=== PATIENT | male | born 1950 | race Caucasian/White ===

== ENCOUNTER 2019-03-20 06:54 | Outpatient (REF) | payer MEDICARE, SELFPAY ==
[2019-03-20 08:02] LABS: Basophils % 0.6 %; Eosinophils # 0.1 10^3/uL (0.0-0.8); Eosinophils % 2.3 %; Hematocrit 45.6 % (42.0-52.0); Hemoglobin 14.7 g/dL (11.7-16.6); Lymphocytes # 1.6 10^3/uL (0.8-4.8); Lymphocytes % 34.1 %; Mean Corpuscular HGB Conc 32.2 g/dL (30.0-36.0); Mean Corpuscular Hemoglobin 31.3 pg (28.0-34.0); Mean Platelet Volume 10.6 fL (7.4-10.4); Monocytes # 0.6 10^3/uL (0.2-0.9); Monocytes % 11.4 %; Neutrophils # 2.5 10^3/uL (1.8-7.7); Neutrophils % 51.6 %; Nucleated Red Blood Cells % 0 %; Platelet Count 190 10^3/cmm (130-400); Red Cell Distribution Width 13.1 % (12.1-15.1); White Blood Count 4.8 10^3/uL (4.0-10.0)
[2019-03-20 11:35] LABS: Prostate Specific Antigen 1.14 ng/mL (0-4)
[2019-03-20 11:47] LABS: Alanine Aminotransferase 29 U/L (0-41); Albumin Level 4.5 g/dL (3.5-5.2); Alkaline Phosphatase 61 IU/L (40-130); Anion Gap 15.5 (5-19); Aspartate Amino Transferase 29 U/L (0-40); Blood Urea Nitrogen 17 mg/dL (8-23); Calcium 10.1 mg/dL (8.5-10.5); Carbon Dioxide 27 mmol/L (22-29); Chloride 102 mmol/L (98-107); Chol HDL Ratio 4.63 mg/dL (1.0-5.00); Cholesterol 222 mg/dL (0-200); Globulin 3.2 g/dL (1.3-4.6); Glomerular Filtration Rate 95.8 mL/min (90-130); Glucose 102 mg/dL (65-115); HDL Cholesterol 48 mg/dL (60-100); LDL Cholesterol Calculated 154 mg/dL (50-129); LDL HDL Ratio 3.21 RATIO (0.00-3.22); Potassium 4.5 mmol/L (3.5-5.1); Sodium 140 mmol/L (136-145); Total Bilirubin 0.5 mg/dL (0.15-1.2); Total Protein 7.7 g/dL (6.6-8.7); Triglycerides 102 mg/dL (0-150)
[2019-03-21 03:14] LABS: Estmated Average Glucose 123; Hemoglobin A1C 5.9 % (4.0-6.0)
== END 2019-03-20 06:55 | disposition home or self-care (01) ==
LOC: LAB 06:54
PROVIDERS: Family Provider Nurse Practitioner Family; PCP Nurse Practitioner Family; Visit Provider Dermatology
DX: Z01.89 Encounter for other specified special examinations (principal)
CPT/HCPCS: 80053; 80061; 83036; 84153; 85025

== ENCOUNTER → 2020-05-03 08:43 | Outpatient (BNVA) | payer SELFPAY | PROVIDERS: Family Provider Nurse Practitioner Family; PCP Nurse Practitioner Family; Visit Provider Dermatology | DX: Z01.89 Encounter for other specified special examinations (principal) ==

== ENCOUNTER → 2020-11-10 09:11 | Outpatient (BNVA) | payer OTHER, SELFPAY | PROVIDERS: Family Provider Nurse Practitioner Family; PCP Nurse Practitioner Family; Visit Provider Registered Nurse | DX: R30.0 Dysuria (principal); R36.0 Urethral discharge without blood; Z20.2 Contact with and (suspected) exposure to infections with a predominantly sexual mode of transmission; N39.0 Urinary tract infection, site not specified | CPT/HCPCS: 81000; 87491; 87591 ==

== ENCOUNTER → 2021-04-25 08:33 | Outpatient (BNVA) | payer SELFPAY | PROVIDERS: Family Provider Nurse Practitioner Family; PCP Registered Nurse; Visit Provider Dermatology | DX: Z01.89 Encounter for other specified special examinations (principal) ==

== ENCOUNTER → 2022-04-24 09:07 | Outpatient (BNVA) | payer SELFPAY | PROVIDERS: Family Provider Nurse Practitioner Family; PCP Registered Nurse; Visit Provider Registered Nurse | DX: Z01.89 Encounter for other specified special examinations (principal); Z13.6 Encounter for screening for cardiovascular disorders ==

== ENCOUNTER → 2022-05-17 11:10 | Outpatient (BNVA) | payer MEDICARE, SELFPAY | PROVIDERS: Family Provider Nurse Practitioner Family; PCP Registered Nurse; Visit Provider Registered Nurse | DX: Z12.83 Encounter for screening for malignant neoplasm of skin (principal) | CPT/HCPCS: 88304 ==

== ENCOUNTER 2022-12-11 22:29 | Observation (INO) | payer MEDICARE, SELFPAY ==
[2022-12-11 22:38] VITALS: BP 135/90; PULSE 98; RESP 18; TEMP 36.7; O2SAT 98; BMI 25.0
[2022-12-11 22:42] VITALS: PULSE 86
--- NOTE | 2022-12-11 22:42 | XRR_ITS ---
PROCEDURE INFORMATION: Exam: XR Chest Exam date and time: 12/11/2022 10:48 PM Age: 72 years old Clinical indication: Pain; Chest pressure; Additional info: Cp TECHNIQUE: Imaging protocol: Radiologic exam of the chest. Views: 1 view. COMPARISON: No relevant prior studies available. FINDINGS: Lungs: Emphysematous changes. Pleural spaces: Unremarkable. No pleural effusion. No pneumothorax. Heart/Mediastinum: Left hilar calcified adenopathy. Bones/joints: Unremarkable. XR/XR chest 1V portable [id number] IMPRESSION: 1. Left hilar calcified adenopathy. 2. Emphysematous changes.
--- NOTE | 2022-12-11 22:42 | ECG_ITS ---
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 Measurements Intervals [place] Rate: 89 P: 0 FL: 0 QRS: 64 QRSD: 101 T: 60 QT: 346 QTc: 422 Interpretive Statements ATRIAL fibrillation POSSIBLE RIGHT VENTRICULAR CONDUCTION DELAY [RSR (QR) IN V1/V2] No previous ECG available for comparison Electronically Signed On 12-12-2022 11:55:20 CDT by Felton Ramos M.D. [email or web address]/[id number]
[2022-12-11 22:45] VITALS: PULSE 97; O2SAT 98
--- NOTE | 2022-12-11 22:48 | ED_ITS ---
HPI - Chest Pain General: Chief Complaint: Chest Pain Stated Complaint: dizzy, pulse high Time Seen by Provider: 12/11/22 22:31 Source: patient Mode of arrival: ambulatory Limitations: no limitations History of Present Illness: 72-year-old male states that throughout the day today has been having palpi tations he states his heart rate has been getting up into the 130s and 140s. He appears to be in A-fib. Has no known history of A-fib denies any chest pain or shortness of breath states he had some slight lightheadedness with standing as well. No vomiting no diarrhea Associated symptoms: Reports palpitations; Deny abdominal pain, dyspnea, fever(s), nausea or vomiting Review of Systems Const: Denies: fever(s), chills, body aches or change in appetite Eyes: Denies: blurry vision or eye discomfort ENMT: Denies: throat pain or dental pain Card: Reports: palpitations and irregular heart rhythm; Denies: chest pain Resp: Denies: dyspnea GI: Denies: abdominal pain, nausea, vomiting or diarrhea : Denies: dysuria Musc: Denies: neck pain or back pain Skin/Breast: Denies: rash Neuro: Reports: dizziness; Denies: headache(s) PFSH ED PFSH: Social History Smoking and tobacco/nicotine status: former use of tobacco/nicotine Quit status (tobacco/nicotine): has quit using Year quit tobacco: 50 Alcohol intake: current Alcohol intake frequency: 0-2 Drinks per Day Alcohol type: beer Substance/Drug Use: never Adopted: No Caregiver/support person: No Lives independently: No Household members: spouse Marital status: service: Yes status: Retired branch: [employer] Assignments: Inside [facility] ([facility]) Known or Potential Exposure: None Current occupational status: retired Sexually active: Yes Do you think of yourself as: Straight/Heterosexual Current gender identity: Male Physical Exam Const: COMMON NORMALS: no acute distress, patient oriented x3 and healthy appearing HENMT: COMMON NORMALS: normocephalic and atraumatic HEAD & SCALP: normocephalic and atraumatic Neck/C-Spine: COMMON NORMALS: full ROM and supple Chest: COMMONS NORMALS: normal inspection of the chest and normal palpation of entire chest wall Resp: COMMON NORMALS: normal respiratory effort, No retractions, No use of accessory muscles and clear to auscultation bilaterally AUSCULTATION: clear to auscultation bilaterally Cardio: COMMON NORMALS: regular rate and No murmurs present (Cardio) RATE: regular rate RHYTHM: abnormal rhythm irregularly irregular GI: COMMON NORMALS: Normal to inspection, nondistended, normoactive bowel sounds present, Soft to palpation, non-tender and no masses PALPATION: Yes Soft to palpation Extremity: COMMON NORMALS: normal to inspection and full ROM Neuro: COMMON NORMALS: patient oriented x3, moves all extremities and no focal motor deficits Psych: COMMON NORMALS: mental status grossly normal, Normal thought process present and cooperative THOUGHT PROCESS: Normal thought process present Skin: COMMON NORMALS: no rashes or lesions noted and no wounds GENERAL SKIN EXAM: no rashes or lesions noted Course Vital Signs: Vital signs: Vital Signs Temperature 98.0 F 12/11/22 22:38 Pulse Rate 98 12/11/22 22:38 Respiratory Rate 18 12/11/22 22:38 Blood Pressure 135/90 12/11/22 22:38 Pulse Oximetry 98 12/11/22 22:38 Oxygen Delivery Me thod Room Air 12/11/22 22:38 MDM - Chest Pain Medical Decision Making Patient presents with new onset A-fib rate has been controlled here blood work here is initially normal spoke to hospitalist will admit for observation for his new onset A-fib Medical Records I reviewed the patient's medical records. Lab Data I reviewed the patient's lab results. 12/11/22 22:42 12/11/22 22:42 Radiology Impressions Chest X-Ray 12/11/22 22:42 IMPRESSION: 1. Left hilar calcified adenopathy. 2. Emphysematous changes. Laboratory Results WBC 6.92 10^3/uL (3.29-11.43) 12/11/22 22:42 RBC 4.74 10^6/uL (3.85-5.65) 12/11/22 22:42 Hgb 14.80 g/dL (11.27-16.99) 12/11/22 22:42 Hct 44.8 % (37-53) 12/11/22 22:42 MCV 94.5 fl (82-101) 12/11/22 22:42 MCH 31.2 pg (27-33) 12/11/22 22:42 MCHC 33.0 g/dL (30-55) 12/11/22 22:42 RDW 13.3 % (12.1-15.1) 12/11/22 22:42 Plt Count 190 10^3/cmm (157-399) 12/11/22 22:42 MPV 10.3 fL (7.4-10.4) 12/11/22 22:42 Neut % (Auto) 47.6 % 12/11/22 22:42 Lymph % (Auto) 37.1 % 12/11/22 22:42 [place] % (Auto) 11.0 % 12/11/22 22:42 Eos % (Auto) 3.6 % 12/11/22 22:42 Baso % (Auto) 0.6 % 12/11/22 22:42 Neut # (Auto) 3.29 10^3/uL (1.8-7.7) 12/11/22 22:42 Lymph # (Auto) 2.6 10^3/uL (0.8-4.8) 12/11/22 22:42 [place] # (Auto) 0.8 10^3/uL (0.2-0.9) 12/11/22 22:42 Eos # (Auto) 0.3 10^3/uL (0.0-0.8) 12/11/22 22:42 Baso # (Auto) 0.0 10^3/uL (0.0-0.1) 12/11/22 22:42 Nucleated RBC % (auto) 0 % 12/11/22 22:42 Nucleated RBCs # 0.0 /100WBC 12/11/22 22:42 Sodium 137 mmol/L (136-145) 12/11/22 22:42 Potassium 4.1 mmol/L (3.5-5.1) 12/11/22 22:42 Chloride 101 mmol/L (98-107) 12/11/22 22:42 Carbon Dioxide 26 mmol/L (22-29) 12/11/22 22:42 Anion Gap 14.1 (5-19) 12/11/22 22:42 BUN 22 mg/dL (8-23) 12/11/22 22:42 Creatinine 0.8 mg/dL (0.7-1.2) 12/11/22 22:42 GFR Calculation Not Reportable 12/11/22 22:42 Glucose 132 mg/dL (65-115) H 12/11/22 22:42 Calculated Osmolality 289 mOsm/kg (285-295) 12/11/22 22:42 Calcium 9.8 mg/dL (8.5-10.5) 12/11/22 22:42 Total Bilirubin 0.2 mg/dL (0.15-1.2) 12/11/22 22:42 AST 25 U/L (0-40) 12/11/22 22:42 ALT 26 U/L (0-41) 12/11/22 22:42 Alkaline Phosphatase 74 U/L (40-130) 12/11/22 22:42 Troponin T Baseline 19 ng/L (0-15) H 12/11/22 22:42 Total Protein 6.8 g/dL (6.6-8.7) 12/11/22 22:42 Albumin 4.4 g/dL (3.5-5.2) 12/11/22 22:42 Globulin 2.4 g/dL (1.3-4.6) 12/11/22 22:42 All radiology interpretation(s) finalized by discharge EKG Data EKG 1: I personally reviewed and interpreted this EKG as follows: EKG interpretation date: 12/11/22 EKG interpretation time: 22:33 Interpretation: afib hr [address] or t wave abnormalities qrs 101 qtc 392 Discharge Plan Discharge Patient Disposition: Placed in Observation Clinical Impression: New onset a-fib Condition: Stable Prescriptions: No Action aspirin 81 mg tablet,chewable 81 mg PO DAILY ibuprofen 200 mg capsule 200 mg PO Q6H PRN Referrals: Graham Weaver FNP [Primary Care Provider] - Chandrakant Calvo FNP [Family Provider] - Coding Level of Care Code ED Cleaning Specialist for Chg Jena
[2022-12-11] MEDS: dilTIAZem 30 mg Tablet 60 MG PO (22:56)
[2022-12-11] MEDS: sodium chloride 0.9% 1,000 ML 999 ML IV (22:56)
[2022-12-11 23:07] LABS: Basophils % 0.6 %; Eosinophils # 0.3 10^3/uL (0.0-0.8); Eosinophils % 3.6 %; Hematocrit 44.8 % (37-53); Lymphocytes # 2.6 10^3/uL (0.8-4.8); Lymphocytes % 37.1 %; Mean Corpuscular Hemoglobin 31.2 pg (27-33); Mean Corpuscular Volume 94.5 fl (82-101); Mean Platelet Volume 10.3 fL (7.4-10.4); Monocytes # 0.8 10^3/uL (0.2-0.9); Neutrophils # 3.29 10^3/uL (1.8-7.7); Neutrophils % 47.6 %; Nucleated Red Blood Cells % 0 %; Platelet Count 190 10^3/cmm (157-399); Red Blood Count 4.74 10^6/uL (3.85-5.65); Red Cell Distribution Width 13.3 % (12.1-15.1); White Blood Count 6.92 10^3/uL (3.29-11.43)
[2022-12-11 23:15] VITALS: PULSE 82; O2SAT 99
[2022-12-11 23:21] LABS: Troponin(5th) Baseline 19 ng/L (0-15)
[2022-12-11 23:26] LABS: Alanine Aminotransferase 26 U/L (0-41); Albumin Level 4.4 g/dL (3.5-5.2); Alkaline Phosphatase 74 U/L (40-130); Anion Gap 14.1 (5-19); Aspartate Amino Transferase 25 U/L (0-40); Blood Urea Nitrogen 22 mg/dL (8-23); Calcium 9.8 mg/dL (8.5-10.5); Carbon Dioxide 26 mmol/L (22-29); Chloride 101 mmol/L (98-107); Creatinine Clr Calc Pharmacy 93.2021; Globulin 2.4 g/dL (1.3-4.6); Glucose 132 mg/dL (65-115); Osmolality Calculated 289 mOsm/kg (285-295); Potassium 4.1 mmol/L (3.5-5.1); Sodium 137 mmol/L (136-145); Total Bilirubin 0.2 mg/dL (0.15-1.2); Total Protein 6.8 g/dL (6.6-8.7)
[2022-12-11 23:44] VITALS: BP 126/83; PULSE 88; RESP 16; O2SAT 97
[2022-12-12] VITALS (8 sets, daily range): BP systolic 97–133; BP diastolic 60–92; PULSE 62–99; RESP 12–25; TEMP 36.4–36.8; O2SAT 94–98
--- NOTE | 2022-12-12 00:42 | ECG_ITS ---
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 Measurements Intervals [place] Rate: 89 P: 0 NV: 0 QRS: 64 QRSD: 101 T: 60 QT: 346 QTc: 422 Interpretive Statements ATRIAL fibrillation POSSIBLE RIGHT VENTRICULAR CONDUCTION DELAY [RSR (QR) IN V1/V2] No previous ECG available for comparison Electronically Signed On 12-12-2022 11:55:47 CDT by Felton Ramos M.D. [id number] f
[2022-12-12 01:14] LABS: Troponin 5 2HR 16.77 ng/L (0-15)
[2022-12-12 01:16] LABS: Troponin 5 2HR Delta -2.23 ABS# (0-10)
--- NOTE | 2022-12-12 02:41 | USCV_ITS ---
Marcus Moura Age: 72 Gender: M : 1950 Exam Date: 12/12/2022 03:02 Ordering Phys: Christelle Clemente MD Technologist: YESENIA Exam Location: [facility] [place] Indication: new Afib. No history of cardiac intervention per patient. BP: 133 / 92 HR: 69 Rhythm: Atrial fibrillation Technical Quality: Adequate MEASUREMENTS (Male / Female) Normal Values 2D ECHO LV Diastolic Diameter PLAX 3.6 cm 4.2 - 5.9 / 3.9 - 5.3 cm LV Systolic Diameter PLAX 2.6 cm IVS Diastolic Thickness 1.7 cm 0.6 - 1.0 / 0.6 - 0.9 cm IVS Systolic Thickness 2.1 cm LVPW Diastolic Thickness 1.8 cm 0.6 - 1.0 / 0.6 - 0.9 cm LVPW Systolic Thickness 2.0 cm LVOT Diameter 1.9 cm LV Ejection Fraction 2D Teich 54.5 % LV Ejection Fraction MOD 2C 59.6 % LV Ejection Fraction 2C AL 60.5 % LA Diameter 4.2 cm LA Width 3.9 cm LA Height 5.2 cm RA Width 3.2 cm RA Height 4.7 cm Aorta at Sinotubular Diameter 3.8 cm IVC Diameter 1.5 cm M-MODE Aortic Annulus Diameter 4.8 cm LA Ao Ratio MM 0.9 MV E Point Septal Separation 0.5 cm DOPPLER AV Peak Velocity 76.0 cm/s LVOT Peak Velocity 71.0 cm/s AV Area Cont Eq vti 2.2 cm squared AV Area Cont Eq pk 2.5 cm squared MV Peak Velocity 89.0 cm/s MV Area PHT 4.0 cm squared MV E' Velocity 47.0 cm/s Mitral E to MV E' Ratio 6.8 Mitral E to LV E' Lateral Ratio 6.5 Mitral E to LV E' Septal Ratio 7.3 TV Peak E Velocity 28.0 cm/s PV Peak Velocity 82.0 cm/s RV Acceleration Time 0.1 s RV Ejection Time 0.3 s RV AcT/ET 0.4 FINDINGS Left Ventricle LV systolic function is normal with EF 55 to 60%. No regional wall motion abnormalities are seen. Diastolic function is indeterminate because of atrial fibrillation. Right Ventricle Normal in size and function Right Atrium Normal in size Left Atrium Dilated Mitral Valve Structurally normal mitral valve. Aortic Valve Grossly normal. No signicant stenosis or regurgitation. Tricuspid Valve Trace tricuspid regurgitation. Insufficient TR jet to calculate RVSP. 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 IVC Appears to be normal CONCLUSIONS LV systolic function is normal with EF 55 to 60%. Diastolic function is indeterminate because of atrial fibrillation. Left atrial dilation Trace tricuspid regurgitation. 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 No comparison studies are available Felton Ramos MD (Electronically Signed) Final Date: 12 December 2022 08:39 S
--- NOTE | 2022-12-12 02:45 | PM.HP ---
Providers/Chief Complaint Admitting Physician: Christelle Clemente MD Primary Care Provider: LIGIA Godinez Chief Complaint: dizzy, pulse high History of Present Illness Marcus Moura is a 72 year old male without significant medical comorbidities who presents to the hospital with about 36 hours of palpitations. Patient states that he has been having a sensation of his heart racing for about 3 days now. Heart rate had been consistently above 100, made worse by exertion. On waking up at night to go to the bathroom patient would often feel dizzy. He denies any past history of atrial fibrillation however has experienced episodic palpitations and dizziness in the past which appears to have self resolved. Most recently his symptoms started shortly after he had been at a social gathering with friends and consumed more alcohol than he usually does. Patient states he typically drinks 1 beer per day but has reduced his frequency significantly over the past 7 months, except for this most recent event. Denies any past history of hypertension diabetes mellitus CHF stroke or coronary artery disease. Denies any dyspnea. Denies chest pain, reports discomfort with the palpitations. He has not started any new medications recently. Denies excessive caffeine consumption. He is fairly active and hikes often. He presnted to the Er today due to persistence of symptoms. H eis found to be in A fib , received 60mg po cardizem in the ER. Review of Systems General: Reports: 10 or more systems reviewed and unremarkable except in HPI and below Const: Denies: fever(s), chills or body aches Eyes: Denies: change in vision, blurry vision or photophobia ENMT: Reports: hoarseness; Denies: throat pain, enlarged tonsils, odynophagia or nasal congestion Card: Denies: chest pain, palpitations, irregular heart rhythm, edema, swelling of feet/ankles, lightheadedness, pre-syncope, dyspnea on exertion or orthopnea Resp: Denies: dyspnea, productive cough, non-productive cough, wheezing, stridor, pain on inspiration, change in phlegm color, hemoptysis or chest congestion GI: Denies: abdominal pain, nausea, vomiting, hematemesis, coffee ground emesis, dysphagia, heartburn, diarrhea, constipation, GI cramping, change in stool character, hematochezia or melena : Denies: flank pain, dysuria, urinary frequency, urinary urgency, urinary hesitancy or hematuria Musc: Denies: neck pain, back pain, extremity pain, joint swelling, joint warmth or deformity Neuro: Denies: headache(s), numbness in extremities, weakness in extremities, sensory changes, difficulty walking, frequent falls, dizziness, vertigo, behavioral changes, Slurred speech present or seizure-like activity Psych: Denies: anxiety, depression, suicidal ideation or homicidal ideation Endo: Denies: polyuria, polydipsia, tired all the time, cold intolerance or hot flashes Yousif/Lymph: Denies: easy bruising or easy bleeding Medications/Allergies Home Medications Medication Instructions Recorded Confirmed Last Taken Type aspirin 81 mg chewable tablet 81 mg PO EVERY OTHER DAY 11/10/20 12/12/22 12/11/22 History ibuprofen 200 mg capsule 200 mg PO Q6H PRN pain 11/10/20 12/12/22 12/11/22 History Fish Oil 1 cap PO 1XD 12/12/22 12/12/22 12/11/22 History L-Lysine 1 tab PO 1XD 12/12/22 12/12/22 12/11/22 History Multi-Daily 1 tab PO 1XD 12/12/22 12/12/22 12/11/22 History Vitamin D (with calcium) 1 tab PO 1XD 12/12/22 12/12/22 12/11/22 History aspirin 1 tab PO EVERY OTHER DAY 12/12/22 12/12/22 12/11/22 History iron 1 tab PO 1XD 12/12/22 12/12/22 12/11/22 History magnesium 1 tab PO 1XD 12/12/22 12/12/22 1 Day Ago History ~12/11/22 saw palmetto 1 tab PO 1XD 12/12/22 12/12/22 1 Day Ago History ~12/11/22 1 tablet Allergies Allergy/AdvReac Type Severity Reaction Status Date / Time No Known Allergies Allergy Verified 12/11/22 22:41 PFSH Acute PFSH: Social History Smoking and tobacco/nicotine status: former use of tobacco/nicotine Quit status (tobacco/nicotine): has quit using Year quit tobacco: 50 Alcohol intake: current Alcohol intake frequency: 0-2 Drinks per Day Alcohol type: beer Substance/Drug Use: never Adopted: No Caregiver/support person: No Lives independently: No Household members: spouse Marital status: service: Yes status: Retired branch: [employer] Assignments: Inside [facility] ([employer]) Known or Potential Exposure: None Current occupational status: retired Sexually active: Yes Do you think of yourself as: Straight/Heterosexual Current gender identity: Male Vitals/I&O/Wt Last Vital Signs Temp 97.5 F L 12/12/22 00:09 Pulse 85 12/12/22 00:09 Resp 18 12/12/22 00:09 BP 123/92 12/12/22 00:09 Pulse Ox 98 12/12/22 00:09 O2 Del Method Room Air 12/12/22 00:09 12/11/22 12/11/22 12/12/22 14:59 22:59 06:59 Intake Total 1000 / 1000 Output Total 400 / 400 Balance 600 / 600 Weight last 48 hrs Weight 83.915 kg Physical Exam Narrative: General: No acute distress, AO x3 HEENT: PERRLA, pupils bilaterally equal and reactive, pallors not present Chest: Normal vesicular breath sounds, no added sounds, equal good air entry bilaterally CVS: S1-S2 regular, no murmurs, no tachycardia, no gallops, no rubs Abdomen: Soft, nontender, no organomegaly, bowel sounds present Neuro: No focal deficits, no facial deformity, AO x3, power 5/5 in all limbs Data 12/11/22 22:42 12/11/22 22:42 A&P Assessment and plan (1) New onset a-fib: Newly diagnosed atrial fibrillation presenting to the ER with about 36 hours of palpitations and heart rate noted to be above 100 at home. Received 60 mg of p.o. Cardizem in the emergency room, thereafter heart rate is between 82-98. Typically patient states his heart rate at baseline runs between 50-60. Check TSH , Ft4 and FT3 No acute st-t wave changes on EKG, trop series 19--> 16 at 2 hrs , no chest pain, overall low suspicion for ACS Negative D dimer, low suspicion for PE Check echocardiogram Start diltiazem 30mg po q6h with close telemetry monitoring Currently [id number] score 1 (+1 point for age 65-74), check hba1c as DM may add additional point to start a/c Attestations Medical Necessity Statement*: less than 2 midnight stay is anticipated for above care Coding Level of Care Code Acute Code for Chg Fwd Moderate MDM includes number and complexity of problems actively addressed during encounter, amount and/or complexity of data reviewed/ordered and described risk of complication, morbidity or mortality of management as documented Diagnoses New onset a-fib I48.91
[2022-12-12 03:00] LABS: D Dimer 0.49 ug/mLFEU (0-0.59)
[2022-12-12] MEDS: dilTIAZem 30 mg Tablet PO (04:48)
--- NOTE | 2022-12-12 04:49 | PC.NURSE ---
order cardizem 30 mg Q6HR, instructed to hold if systolic BP is under 110.
[2022-12-12 05:19] LABS: Troponin 5 6HR 17.36 ng/L (0-15); Troponin 5 6HR Delta -1.64 ng/L (0-12)
[2022-12-12 05:26] LABS: Free T4 Free Thyroxine 1.31 ng/dL (0.82-1.77); T3 Free 2.9 PG/ML (2.0-4.4)
[2022-12-12 05:57] LABS: Estmated Average Glucose 114; Hemoglobin A1C 5.6 % (4.0-6.0)
[2022-12-12] MEDS: pantoprazole DR 40 mg Tablet PO (08:31)
[2022-12-12] MEDS: aspirin 81 mg EC Tablet PO (10:23)
[2022-12-12] MEDS: dilTIAZem 30 mg Tablet 60 MG PO (10:23)
--- NOTE | 2022-12-12 10:39 | P.DS_ITS ---
Discharge Providers Date of Admission: 12/11/22 23:54 Date of Discharge: December 12, 2022 Attending Provider at Admission: Christelle Clemente MD Attending Provider at Discharge: Collin Doe MD Primary Care Provider: LIGIA Godinez Diagnoses at Discharge Discharge Diagnosis (1) New onset a-fib: Status: Acute Reason for Visit Reason for Visit: dizzy, pulse high Hospital Course Hospital Course Marcus Moura is a 72 year old male without significant medical comorbidities who presents to the hospital with about 36 hours of palpitations.? Patient states that he has been having a sensation of his heart racing for about 3 days now.? ? Heart rate had been consistently above 100, made worse by exertion.? On waking up at night to go to the bathroom patient would often feel dizzy.? He denies any past history of atrial fibrillation however has experienced episodic palpitations and dizziness in the past which appears to have self resolved. Most recently his symptoms started shortly after he had been at a social gathering with friends and consumed more alcohol than he usually does.? Patient states he typically drinks 1 beer per day but has reduced his frequency significantly over the past 7 months, except for this most recent event. Denies any past history of hypertension diabetes mellitus CHF stroke or coronary artery disease.? Denies any dyspnea. Denies chest pain, reports discomfort with the palpitations.? He has not started any new medications recently.? Denies excessive caffeine consumption.? He is fairly active and hikes often. He presnted to the Er today due to persistence of symptoms. H eis found to be in A fib , received 60mg po cardizem in the ER. This is a 72-year-old with no significant past medical history, presents [facility] for palpitations, presented to [facility] found to have A-fib with RVR, given Cardizem, heart rates were reasonable, monitored on cardiac stepdown unit, did require 60 Cardizem every 6, heart rates well controlled with exertion. Will be discharged on Cardizem 120 twice daily with close follow-up with cardiology as outpatient. In terms of anticoagulant therapy, patient's Ady Vascor is 1, discussed risks and benefits of anticoagulation such as Eliquis or Xarelto or Coumadin, for now he wants to proceed with aspirin 81 mg, discussed risk and benefits, he voiced understanding, shared decision making, for now he wants to continue aspirin 81 mg once daily. Discussed his risk of strokes, if he were to have any strokelike symptoms please call 911 immediately. In terms of his etiology of atrial fibrillation, he does drink 2 cups of coffee a day I have advised him to cut down his coffee consumption. He does report a history of alcohol consumption, before his episode of chest palpitations, he had consumed beer and wine, I advised him to abstain from alcohol consumption. Follow-up with cardiology 1 week, if he were to have any chest pain or palpitations go to the emergency room. His echocardiogram did show dilatation of ascending aorta, 4 cm, will have a follow-up with cardiothoracic surgery for monitoring. Physical Exam Const: COMMON NORMALS: no acute distress and patient oriented x3 Resp: COMMON NORMALS: normal respiratory effort, No retractions, No use of accessory muscles and clear to auscultation bilaterally AUSCULTATION: clear to auscultation bilaterally Cardio: COMMON NORMALS: regular rate, regular rhythm, S1 normal heart sound present and S2 normal heart sound present RATE: regular rate RHYTHM: regular rhythm HEART SOUNDS: S1 normal heart sound present and S2 normal heart sound present GI: COMMON NORMALS: Normal to inspection, nondistended, normoactive bowel sounds present and non-tender Extremity: COMMON NORMALS: no pedal edema Neuro: COMMON NORMALS: patient oriented x3 Psych: COMMON NORMALS: mental status grossly normal Discharge Data Studies Completed and Pending Completed Studies During Hospitalization Category Date Time Status XR chest 1V portable [id number] Stat Exams 12/11/22 22:42 Completed CV. echo complete* [id number] Routine Ultrasound 12/12/22 02:41 Completed Radiology Impressions Chest X-Ray 12/11/22 22:42 IMPRESSION: 1. Left hilar calcified adenopathy. 2. Emphysematous changes. Laboratory Results WBC 6.92 10^3/uL (3.29-11.43) 12/11/22 22:42 RBC 4.74 10^6/uL (3.85-5.65) 12/11/22 22:42 Hgb 14.80 g/dL (11.27-16.99) 12/11/22 22:42 Hct 44.8 % (37-53) 12/11/22 22:42 MCV 94.5 fl (82-101) 12/11/22 22:42 MCH 31.2 pg (27-33) 12/11/22 22:42 MCHC 33.0 g/dL (30-55) 12/11/22 22:42 RDW 13.3 % (12.1-15.1) 12/11/22 22:42 Plt Count 190 10^3/cmm (157-399) 12/11/22 22:42 MPV 10.3 fL (7.4-10.4) 12/11/22 22:42 Neut % (Auto) 47.6 % 12/11/22 22:42 Lymph % (Auto) 37.1 % 12/11/22 22:42 Stokes % (Auto) 11.0 % 12/11/22 22:42 Eos % (Auto) 3.6 % 12/11/22 22:42 Baso % (Auto) 0.6 % 12/11/22 22:42 Neut # (Auto) 3.29 10^3/uL (1.8-7.7) 12/11/22 22:42 Lymph # (Auto) 2.6 10^3/uL (0.8-4.8) 12/11/22 22:42 Stokes # (Auto) 0.8 10^3/uL (0.2-0.9) 12/11/22 22:42 Eos # (Auto) 0.3 10^3/uL (0.0-0.8) 12/11/22 22:42 Baso # (Auto) 0.0 10^3/uL (0.0-0.1) 12/11/22 22:42 Nucleated RBC % (auto) 0 % 12/11/22 22:42 Nucleated RBCs # 0.0 /100WBC 12/11/22 22:42 D-Dimer 0.49 ug/mLFEU (0-0.59) 12/11/22 22:42 Sodium 137 mmol/L (136-145) 12/11/22 22:42 Potassium 4.1 mmol/L (3.5-5.1) 12/11/22 22:42 Chloride 101 mmol/L (98-107) 12/11/22 22:42 Carbon Dioxide 26 mmol/L (22-29) 12/11/22 22:42 Anion Gap 14.1 (5-19) 12/11/22 22:42 BUN 22 mg/dL (8-23) 12/11/22 22:42 Creatinine 0.8 mg/dL (0.7-1.2) 12/11/22 22:42 GFR Calculation Not Reportable 12/11/22 22:42 Glucose 132 mg/dL (65-115) H 12/11/22 22:42 Estimat Average Glucose 114 12/11/22 22:42 Hemoglobin A1c 5.6 % (4.0-6.0) 12/11/22 22:42 Calculated Osmolality 289 mOsm/kg (285-295) 12/11/22 22:42 Calcium 9.8 mg/dL (8.5-10.5) 12/11/22 22:42 Total Bilirubin 0.2 mg/dL (0.15-1.2) 12/11/22 22:42 AST 25 U/L (0-40) 12/11/22 22:42 ALT 26 U/L (0-41) 12/11/22 22:42 Alkaline Phosphatase 74 U/L (40-130) 12/11/22 22:42 Troponin T Baseline 19 ng/L (0-15) H 12/11/22 22:42 Troponin T 120 Minute 16.77 ng/L (0-15) H 12/12/22 00:40 Delta Troponin T -2.23 ABS# (0-10) L 12/12/22 00:40 Troponin T Hi Sens 6Hr 17.36 ng/L (0-15) H 12/12/22 04:42 Troponin T Hi Sens 6Hr Delta -1.64 ng/L (0-12) L 12/12/22 04:42 Total Protein 6.8 g/dL (6.6-8.7) 12/11/22 22:42 Albumin 4.4 g/dL (3.5-5.2) 12/11/22 22:42 Globulin 2.4 g/dL (1.3-4.6) 12/11/22 22:42 TSH 4.50 uIU/mL (0.27-4.20) H 12/11/22 22:42 Free T4 1.31 ng/dL (0.82-1.77) 12/12/22 04:42 Free T3 2.9 PG/ML (2.0-4.4) 12/12/22 04:42 Vitals Last Vital Signs Temp 97.7 F 12/12/22 07:43 Pulse 75 12/12/22 07:43 Resp 17 12/12/22 07:43 BP 108/73 12/12/22 07:43 Pulse Ox 98 12/12/22 07:43 O2 Del Method Room Air 12/12/22 07:43 Discharge Plan Discharge Patient Disposition: Home Condition: Stable Prescriptions: New aspirin 81 mg Tablet,Delayed Release (Dr/Ec) 81 mg PO DAILY 30 Days Qty: 30 0RF diltiazem HCl [Cardizem] 120 mg tablet 120 mg PO Q12H 30 Days Qty: 60 0RF Continued L-Lysine tablet 1 tab PO 1XD Multi-Daily tablet 1 tab PO 1XD Vitamin D (with calcium) tablet 1 tab PO 1XD iron tablet 1 tab PO 1XD magnesium tablet 1 tab PO 1XD saw palmetto tablet 1 tab PO 1XD Discontinued aspirin 81 mg tablet,chewable 81 mg PO EVERY OTHER DAY ibuprofen 200 mg capsule 200 mg PO Q6H PRN (Reason: pain) Fish Oil capsule 1 cap PO 1XD aspirin 81 mg tablet 1 tab PO EVERY OTHER DAY Discharge Orders: Discharge Order (Routine); Ordered 12/12/22 Ordered By: Collin Doe Referrals: Felton Ramos M.D [Physician] - 1 week Graham Weaver FNP [Primary Care Provider] - 12/17/22 1:00 pm Clifford Hunter MD [Physician] - 1 week (thorac aorta dilatation) Discharge Diet: Cardiac Discharge Activity: Resume usual activity Patient Instructions: A-fib (Atrial Fibrillation) (DC), At-Risk Alcohol Use (DC), Opioid Safety Activity Restrictions/Additional Instructions: - If you have recurrent chest pain or palpitations please go to the emergency room -Please take Cardizem as prescribed ? Take aspirin once daily as prescribed, follow-up with cardiology in 1 week ? If you have any strokelike symptoms please call 911 -please follow-up with Dr. Hunter for ascending aortic dilatation Discharge Attestations Time Spent in Discharge Care*: greater than 30 min Quality Metrics Clinical Quality Measures [ No reported AMI, CVA or VTE this stay] Coding Level of Care Code 79681 Total time (in minutes) for Discharge: 45 Diagnoses New onset a-fib I48.91
--- NOTE | 2022-12-12 11:04 | PC.CHAP ---
Pastoral Care Encounter/Spiritual Assessment Type of Contact [] Declined general science teacher visit [] Patient/Family/Request visit [] Outpatient visit [] Follow-up visit [] Physician referral [] Code/Alert [x] Routine visit [] Staff referral [] Actively dying [] Patient sleeping [] Family support [] [] Out of room [] Palliative care [] [] Receiving care in room [] Pre-surgical visit [] Trauma [] Long length of stay [] ICU visit [] Other: Relational/Emotional Strength [x] Patient feels connected with others/family/visitors/staff [] Distress [] Loneliness/isolation [] Abandonment Spirituality of Patient [] Person of [place] [] Attends Pentecostal of their [place] [x] Believes in Prayer [] Reads Bible or Zoroastrianism materials [] There are Spiritual issues to be addressed Tube Repairer Interventions [x] Prayer [x] Active listening [] Non-anxious presence [] Spiritual/emotional support [] Crisis/trauma care [] Spiritual counseling [] Bereavement support [] Provided bereavement packet [] Provided Bible/devotional materials [] Provided toy/stuffed animal, coloring book to patient or family member [] Provided Communion [] Anointing/[place] [] Salvation [] Completed spiritual assessment [] Other: Impact on Illness or Injury [] Angry [] Fearful [] Anxious [] Often cries [] Exhaustion [] Unable to work [] Unable to attend holiness [] Unable to walk/stand [] Unable to read [] Unable to drive [] Unable to eat/drink [] Unable to sleep [] Unable to be with family [] Patient intubated [] Other: Summary Time spent with patient 20 min
--- NOTE | 2022-12-12 11:34 | PC.NURSE ---
Patient is walked up and down the hallway in [facility] x 3. His heart rate at rest was 80's - 90's. His heart rate during walking was 90's - 113. Heart rate returned to 70's - 90's within a minute of sitting down. Provider is notified and ordered his discharge.
== END 2022-12-12 13:26 | disposition home or self-care (01) ==
LOC: ER 23:40 → CSU 23:56
PROVIDERS: Admitting Provider Student in an Organized Health Care Education/Training Program; Emergency Provider Emergency Medicine; Family Provider Nurse Practitioner Family; PCP Registered Nurse; Visit Provider Family Medicine
DX: I48.91 Unspecified atrial fibrillation (principal); Z79.82 Long term (current) use of aspirin; Z87.891 Personal history of nicotine dependence
CPT/HCPCS: 36415; 71045; 80053; 83036; 84439; 84443; 84481; 84484; 85025; 85378; 93005; 93306; 99285; G0378; J7030

== ENCOUNTER → 2022-12-18 14:17 | Outpatient (BNVA) | payer MEDICARE, SELFPAY | PROVIDERS: Family Provider Nurse Practitioner Family; PCP Registered Nurse; Visit Provider Thoracic Surgery (Cardiothoracic Vascular Surgery) | DX: Z09 Encounter for follow-up examination after completed treatment for conditions other than malignant neoplasm (principal) | CPT/HCPCS: 99203 ==

== ENCOUNTER 2022-12-21 06:47 | Outpatient (CLI) | payer MEDICARE, SELFPAY ==
--- NOTE | 2022-12-21 07:00 | CT_ITS ---
WS: [id number] CTA THORACIC AORTA WITH AND WITHOUT CONTRAST HISTORY: ASCENDING AORTA dilatation TECHNIQUE: CT imaging of the thorax is performed with and without contrast. After noncontrast imaging is performed, CT angiogram is performed during injection of Omnipaque 350; 100 mL IV.. Sagittal and coronal reconstructions, sagittal and coronal MIP imaging is submitted. All CT scans at [facility] use at least one of these dose optimization techniques: automated exposure control; mA and/or k V adjustment per patient size (includes targeted exams where dose is matched to clinical indication); or iterative reconstruction. DLP: 768.61 mGy.cm COMPARISON: None available. Very mildly ectatic thoracic aorta with no aneurysmal dilatation. Maximum diameter of the ascending a cuca is 3.8 cm. There is only a small amount of calcified plaque through the aortic arch and descendi ng aorta. The annulus of the aorta is normal. Normal sized ascending aorta. Great vessels are normal. There is a small amount of plaque adjacent to the origin of the LEFT subclavian artery. No aortic di ssection. No ulcerated plaque. No pulmonary mass, nodule or pneumonia. No pericardial or pleural effusions. There is very mild enlar gement of the heart chambers. No RIGHT heart strain. No mediastinal or hilar adenopathy. Benign calci fied subcarinal lymph nodes. 8 mm lobulated low-attenuation mass in the LEFT lobe of the liver. Additional smaller similar low-att enuation masses within the RIGHT lobe. No adrenal mass. Moderate thoracic spondylosis. No destructive osteoblastic or osteolytic lesions. IMPRESSION: 1. Very mild ectasia thoracic aorta. No aneurysm. Maximum diameter ascending aorta is 3.8 cm. 2. Mild cardiac enlargement. 3. No pulmonary mass or pneumonia. 4. Low-attenuation masses within the liver most consistent with cysts. Majority of these are too smal l to characterize.
[2022-12-21] MEDS: iohexol 350 mg/mL 500 mL Btl (per mL) IV (07:12)
== END 2022-12-21 06:48 | disposition home or self-care (01) ==
LOC: RAD 06:48
PROVIDERS: Family Provider Nurse Practitioner Family; PCP Registered Nurse; Visit Provider Thoracic Surgery (Cardiothoracic Vascular Surgery)
DX: I77.810 Thoracic aortic ectasia (principal); I51.7 Cardiomegaly; R16.0 Hepatomegaly, not elsewhere classified
CPT/HCPCS: 71275; Q9967

== ENCOUNTER → 2022-12-26 10:15 | Outpatient (BNVA) | payer MEDICARE, SELFPAY | PROVIDERS: Family Provider Nurse Practitioner Family; PCP Registered Nurse; Visit Provider Internal Medicine Cardiovascular Disease | DX: I48.91 Unspecified atrial fibrillation (principal); Z87.891 Personal history of nicotine dependence | CPT/HCPCS: 99203 ==

== ENCOUNTER → 2023-04-17 09:57 | Outpatient (BNVA) | payer MEDICARE, SELFPAY | PROVIDERS: Family Provider Nurse Practitioner Family; PCP Registered Nurse; Visit Provider Registered Nurse | DX: I48.19 Other persistent atrial fibrillation (principal) | CPT/HCPCS: 93005 ==

== ENCOUNTER → 2023-04-22 11:03 | Outpatient (BNVA) | payer MEDICARE, SELFPAY | PROVIDERS: Family Provider Nurse Practitioner Family; PCP Registered Nurse; Visit Provider Registered Nurse | DX: I48.19 Other persistent atrial fibrillation (principal); I48.92 Unspecified atrial flutter | CPT/HCPCS: 93005 ==

== ENCOUNTER → 2023-05-08 09:16 | Outpatient (BNVA) | payer MEDICARE, SELFPAY | PROVIDERS: Family Provider Nurse Practitioner Family; PCP Family Medicine; Visit Provider Nurse Practitioner Family | DX: I48.19 Other persistent atrial fibrillation (principal); Z87.891 Personal history of nicotine dependence; Z79.82 Long term (current) use of aspirin | CPT/HCPCS: 99213 ==

== ENCOUNTER → 2023-07-16 13:03 | Outpatient (BNVA) | payer MEDICARE, SELFPAY | PROVIDERS: Family Provider Nurse Practitioner Family; PCP Family Medicine; Visit Provider Internal Medicine Cardiovascular Disease | DX: I48.19 Other persistent atrial fibrillation (principal); Z87.891 Personal history of nicotine dependence | CPT/HCPCS: 99213 ==

== ENCOUNTER → 2023-10-22 10:03 | Outpatient (BNVA) | payer MEDICARE, SELFPAY | PROVIDERS: Family Provider Nurse Practitioner Family; PCP Family Medicine; Visit Provider Registered Nurse | DX: Z13.6 Encounter for screening for cardiovascular disorders (principal); Z13.1 Encounter for screening for diabetes mellitus | CPT/HCPCS: 80061; 83036 ==

== ENCOUNTER → 2024-04-10 10:27 | Outpatient (BNVA) | payer MEDICARE, SELFPAY | PROVIDERS: Family Provider Nurse Practitioner Family; PCP Family Medicine; Visit Provider Dermatology | DX: Z13.6 Encounter for screening for cardiovascular disorders (principal) | CPT/HCPCS: 80061; 82947; 83036 ==

== ENCOUNTER → 2024-07-17 09:37 | Outpatient (BNVA) | payer MEDICARE, SELFPAY | PROVIDERS: Family Provider Nurse Practitioner Family; PCP Family Medicine; Visit Provider Internal Medicine Cardiovascular Disease | DX: I48.19 Other persistent atrial fibrillation (principal); Z79.82 Long term (current) use of aspirin; I10 Essential (primary) hypertension; Z87.891 Personal history of nicotine dependence | CPT/HCPCS: 99214 ==